=== PATIENT | male | born 1980 | race Hispanic/Latino ===

== ENCOUNTER 2017-07-25 05:41 | Inpatient (IN) | payer BC, OTHER ==
[2017-07-25] MEDS ORDERED: Sodium Chloride 0.9% 1,000 ML IV STA (06:14)
--- NOTE | 2017-07-25 06:15 | ED PDOC ---
Arrival/HPI - General Chief Complaint: Abdominal Pain Time Seen by Provider: 07/25/17 05:43 Historian: Patient - History of Present Illness Narrative History of Present Illness (Text): 07/25/17 06:12 Rob Reyna is a 37 year old male who presents to the Emergency department complaining of abdominal pain. Patient states he woke up yesterday with upper abdominal pain, which resolved on its own. Patient states abdominal pain pain returned today and notes he woke up today with severe RLQ pain, which has improved, but is still present. Patient denies any fever, chills, chest pain, shortness of breath, nausea, vomiting, diarrhea, urinary symptoms, back pain, neck pain, headache, dizziness, or any other complaints. Time/Duration: Other (yesterday) Symptom Onset: Gradual Symptom Course: Unchanged Activities at Onset: Light Context: Home Past Medical History - Provider Review Nursing Documentation Reviewed: Yes - Past Medical History Past Medical History: No Previous - Psychiatric Hx Depression: Yes Hx Emotional Abuse: No Hx Physical Abuse: No Hx Substance Use: No - Past Surgical History Past Surgical History: No Previous - Anesthesia Hx Anesthesia: No - Suicidal Assessment Feels Threatened In Home Enviroment: No Family/Social History - Physician Review Nursing Documentation Reviewed: Yes Family/Social History: Unknown Family HX Smoking Status: Never Smoked Hx Alcohol Use: Yes (beer) Frequency of alcohol use: Daily Hx Substance Use: No Hx Substance Use Treatment: No Allergies/Home Meds Allergies/Adverse Reactions: Allergies No Known Allergies Allergy (Verified 07/25/17 06:01) Home Medications: Home Meds Medication Instructions Recorded Confirmed Azilsartan Med/Chlorthalidone 1 tab PO DAILY 07/25/17 07/25/17 [Edarbyclor 40-25 mg Tablet] lamoTRIgine [Lamictal] 100 mg PO DAILY 07/25/17 07/25/17 Review of Systems - Physician Review All systems were reviewed & negative as marked: Yes - Review of Systems Constitutional: Normal. absent: Fevers Eyes: Normal ENT: Normal Respiratory: Normal. absent: SOB, Cough Cardiovascular: Normal. absent: Chest Pain Gastrointestinal: Abdominal Pain. absent: Diarrhea, Vomiting Genitourinary Male: Normal. absent: Dysuria, Frequency, Hematuria, Urinary Output Changes Musculoskeletal: Normal. absent: Back Pain, Neck Pain Skin: Normal. absent: Rash Neurological: Normal. absent: Headache, Dizziness Endocrine: Normal Hemo/Lymphatic: Normal Psychiatric: Normal Physical Exam Vital Signs Reviewed: Yes Vital Signs Temp Pulse Resp BP Pulse Ox 07/25/17 09:44 97.9 F 99 H 18 115/84 98 07/25/17 09:16 97.9 F 100 H 19 103/71 98 07/25/17 08:13 98.3 F 100 H 20 141/84 97 07/25/17 06:37 99 H 16 111/65 96 07/25/17 05:57 99.0 F 104 H 18 128/85 97 Temperature: Afebrile Blood Pressure: Normal Pulse: Regular Respiratory Rate: Normal Appearance: Positive for: Well-Appearing, Non-Toxic, Comfortable Pain Distress: None Mental Status: Positive for: Alert and Oriented X 3 - Systems Exam Head: Present: Atraumatic, Normocephalic Pupils: Present: PERRL Extroacular Muscles: Present: EOMI Conjunctiva: Present: Normal Mouth: Present: Moist Mucous Membranes Neck: Present: Normal Range of Motion Respiratory/Chest: Present: Clear to Auscultation, Good Air Exchange. No: Respiratory Distress, Accessory Muscle Use Cardiovascular: Present: Regular Rate and Rhythm, Normal S1, S2. No: Murmurs Abdomen: Present: Tenderness (RLQ tenderness). No: Distention, Peritoneal Signs Back: Present: Normal Inspection Upper Extremity: Present: Normal Inspection. No: Cyanosis, Edema Lower Extremity: Present: Normal Inspection. No: Edema Neurological: Present: GCS=15, CN II-XII Intact, Speech Normal Skin: Present: Warm, Dry, Normal Color. No: Rashes Psychiatric: Present: Alert, Oriented x 3, Normal Insight, Normal Concentration Medical Decision Making ED Course and Treatment: 07/25/17 06:12 Impression: 37 year old male complaining of abdominal pain since yesterday. Plan: -- CT Abdomen and Pelvis with IV contrast -- EKG -- Labs, amylase, lipase, cardiac enzymes -- Urinalysis -- IV fluids -- Reassess and disposition Progress Notes: 07/25/17 07:[address] Hawkins, pending CT scan, re-evaluation, and disposition. - Lab Interpretations Lab Results: 07/25/17 06:25 07/25/17 06:25 Lab Results 07/25/17 06:25: Sodium 137, Potassium 4.1, Chloride 95 L, Carbon Dioxide 25, Anion Gap 21 H, BUN 13, Creatinine 1.1, Est GFR ( Amer) > 60, Est GFR ( Non-Af Amer) > 60, Random Glucose 93, Calcium 9.4, Total Bilirubin 1.2, AST 80 H , ALT 87 H, Alkaline Phosphatase 49, Lactate Dehydrogenase 470, Total Creatine Kinase 357 H, CK-MB (CK-2) 2.6, CK-MB (CK-2) % Cancelled, Troponin I < 0.01, Total Protein 8.2, Albumin 4.7, Globulin 3.4, Albumin/Globulin Ratio 1.4, Amylase 95, Lipase 73 07/25/17 06:25: PT 12.2, INR 1.06, APTT 32.0 07/25/17 06:25: WBC 9.2, RBC 5.25, Hgb 15.5, Hct 45.1, MCV 85.9, MCH 29.5, MCHC 34.4, RDW 12.6, Plt Count 231, MPV 9.7, Gran % 67.0, Lymph % (Auto) 19.5 L, Forrest % (Auto) 10.5 H, Eos % (Auto) 2.8, Baso % (Auto) 0.2, Gran # 6.16, Lymph # (Auto) 1.8, Forrest # (Auto) 1.0 H, Eos # (Auto) 0.3, Baso # (Auto) 0.02 - RAD Interpretation Radiology Orders: 07/25/17 06:14 ABD & PELVIS IV CONTRAST ONLY [CT] Stat - Medication Orders Current Medication Orders: Discontinued Medications Hydromorphone HCl (Dilaudid) 0.5 mg IVP Q15M PRN PRN Reason: Pain, moderate (4-7) Stop: 07/25/17 18:15 Sodium Chloride (Sodium Chloride 0.9%) 1,000 mls @ 100 mls/hr IV .Q10H STA Stop: 07/25/17 16:13 Last Admin: 07/25/17 06:35 Dose: 100 mls/hr eMAR Start Stop Document 07/25/17 06:35 RG (Rec: 07/25/17 06:45 RG [id number]) Intravenous Solution Start Date 05/09/18 Start Time 06:35 Ciprofloxacin (Cipro 400mg/200ml Dsw) 400 mg in 200 mls @ 133.3 mls/hr IVPB STAT STA PRN Reason: Protocol Stop: 07/25/17 09:44 Last Admin: 07/25/17 11:11 Dose: 133.3 mls/hr Comments: NOT GIVEN IN ER. CONFIRMED BY TONY. eMAR Start Stop Document 07/25/17 11:11 EP (Rec: 07/25/17 11:11 EP [facility] [id number]) Intravenous Solution Start Date 07/25/17 Start Time 11:11 End Date 07/25/17 End time 12:41 Total Infusion Time 90 Metronidazole (Flagyl) 500 mg in 100 mls @ 100 mls/hr IVPB STAT STA PRN Reason: Protocol Stop: 07/25/17 09:13 Last Admin: 07/25/17 09:02 Dose: 100 mls/hr eMAR Start Stop Document 07/25/17 09:02 [email or web address] (Rec: 07/25/17 09:02 [email or web address] [id number]) Intravenous Solution Start Date 07/25/17 Start Time 09:02 Lactated Ringer's (Lactated Ringer's) 1,000 mls @ 125 mls/hr IV .Q8H DONTRELL Last Admin: 07/26/17 00:41 Dose: 125 mls/hr eMAR Start Stop Document 07/26/17 00:41 BR (Rec: 07/26/17 00:42 BR [id number]) Intravenous Solution Start Date 07/26/17 Start Time 00:42 Piperacillin Sod/Tazobactam Sod (Zosyn 3.375 In Ns 100ml) 100 mls @ 200 mls/hr IVPB Q6 DONTRELL PRN Reason: Protocol Stop: 07/25/17 18:29 Last Admin: 07/25/17 18:11 Dose: 200 mls/hr eMAR Start Stop Document 07/25/17 18:11 EP (Rec: 07/25/17 18:11 EP [facility] [id number]) Intravenous Solution Start Date 07/25/17 Start Time 18:11 End Date 07/25/17 End time 18:41 Total Infusion Time 30 Lorazepam (Ativan) 1 mg IVP Q4H PRN PRN Reason: Symptoms of alcohol withdrawl Morphine Sulfate (Morphine) 4 mg IVP Q4H PRN PRN Reason: Pain, moderate (4-7) Oxycodone/Acetaminophen (Percocet 5/325 Mg Tab) 1 tab PO Q4H PRN PRN Reason: Pain, moderate (4-7) Stop: 07/28/17 16:53 Last Admin: 07/25/17 22:48 Dose: 1 tab MAR Pain Assessment Document 07/25/17 22:48 BR (Rec: 07/25/17 22:48 BR [id number]) Pain Reassessment Is this a pain reassessment? No Sleep Is patient sleeping during reassessment? No Presence of Pain Presence of Pain Yes Pneumococcal Polyvalent Vaccine (Pneumovax 23 Vaccine) 0.5 ml IM .ONCE ONE Stop: 07/25/17 13:14 - Transfer of Care Patient signed out to Dr:: soledad ct and dispo - Scribe Statement The provider has reviewed the documentation as recorded by the Scribhan Justice Provider Scribe Attestation: All medical record entries made by the Scribe were at my direction and personally dictated by me. I have reviewed the chart and agree that the record accurately reflects my personal performance of the history, physical exam, medical decision making, and the department course for this patient. I have also personally directed, reviewed, and agree with the discharge instructions and disposition. Disposition/Present on Arrival - Present on Arrival Any Indicators Present on Arrival: No History of DVT/PE: No History of Uncontrolled Diabetes: No Urinary Catheter: No History of Decub. Ulcer: No History Surgical Site Infection Following: None - Disposition Have Diagnosis and Disposition been Completed?: Yes Diagnosis: Acute appendicitis Disposition: HOSPITALIZED Disposition Time: 07:00 Condition: FAIR
[2017-07-25 06:43] LABS: BASO # 0.02 K/mm3 (0.0-2.0); BASO % 0.2 % (0.0-3.0); EOS # 0.3 (0.0-0.7); EOS % 2.8 % (1.5-5.0); GRAN # 6.16 (1.4-6.5); HEMOGLOBIN 15.5 g/dL (14.0-18.0); LYMPH # 1.8 (1.2-3.4); LYMPH % 19.5 % (22.0-35.0); MEAN CELL VOLUME 85.9 fl (80.0-105.0); MEAN CORPUSCULAR HEMOGLOBIN 29.5 pg (25.0-35.0); MEAN CORPUSCULAR HGB CONC 34.4 g/dl (31.0-37.0); MEAN PLATELET VOLUME 9.7 fl (7.0-11.0); MONO % 10.5 % (1.0-6.0); RBC 5.25 10^6/uL (3.5-6.1); RED CELL DISTRIBUTION WIDTH 12.6 % (11.5-14.5); WHITE BLOOD COUNT 9.2 10^3/ul (4.5-11.0)
[2017-07-25 06:50] LABS: ALB/GLOB RATIO 1.4 (1.1-1.8); ALBUMIN 4.7 g/dL (3.0-4.8); ALT/SGPT 87 U/L (7-56); AMYLASE 95 U/L (35-125); AST/SGOT 80 U/L (17-59); BLOOD UREA NITROGEN 13 mg/dL (7-21); CALCIUM 9.4 mg/dL (8.4-10.5); GFR AFRICAN-AMERICAN > 60; GFR NON-AFRICAN AMERICAN > 60; LIPASE 73 U/L (23-300)
[2017-07-25 06:51] LABS: INR 1.06 (0.93-1.08); PROTHROMBIN TIME 12.2 SECONDS (9.4-12.5)
[2017-07-25 07:00] LABS: TROPONIN I < 0.01 ng/mL
[2017-07-25 07:17] LABS: CK-MB 2.6 ng/mL (0.0-3.6)
--- NOTE | 2017-07-25 08:00 | CT ---
EXAM: CT Abdomen and Pelvis With Intravenous Contrast CLINICAL HISTORY: 37 years old, male; Pain; Abdominal pain; Localized; Right lower quadrant (rlq); Additional info: Rlq pain TECHNIQUE: Axial computed tomography images of the abdomen and pelvis with intravenous contrast. All CT scans at this facility use one or more dose reduction techniques, viz.: automated exposure control; ma/kV adjustment per patient size (including targeted exams where dose is matched to indication; i.e. head); or iterative reconstruction technique. Coronal and sagittal reformatted images were created and reviewed. CONTRAST: 150 mL of OMNIPAQUE 350 administered intravenously. COMPARISON: No relevant prior studies available. FINDINGS: Lung bases: Unremarkable. No mass. No consolidation. ABDOMEN: Liver: Unremarkable. No mass. Gallbladder and bile ducts: Unremarkable. No calcified stones. No ductal dilation. Pancreas: Unremarkable. No mass. No ductal dilation. Spleen: Unremarkable. No splenomegaly. Adrenals: Unremarkable. No mass. Kidneys and ureters: Unremarkable. No solid mass. No hydronephrosis. Stomach and bowel: Unremarkable. No obstruction. No mucosal thickening. PELVIS: Appendix: The appendix demonstrates mild diffuse distention measuring 10 mm, consistent with mild or early acute appendicitis. There is mild inflammatory stranding. No perforation or abscess. Bladder: Unremarkable. No mass. Reproductive: Unremarkable as visualized. ABDOMEN and PELVIS: Intraperitoneal space: Unremarkable. No free air. No significant fluid collection. Bones/joints: No acute fracture. No dislocation. Soft tissues: Unremarkable. Vasculature: Unremarkable. No abdominal aortic aneurysm. Lymph nodes: Unremarkable. No enlarged lymph nodes. IMPRESSION: Findings consistent with acute appendicitis.
--- NOTE | 2017-07-25 08:09 | ED PDOC ---
Physical Exam Vital Signs Temp Pulse Resp BP Pulse Ox 07/25/17 08:13 98.3 F 100 H 20 141/84 97 07/25/17 06:37 99 H 16 111/65 96 07/25/17 05:57 99.0 F 104 H 18 128/85 97 Medical Decision Making ED Course and Treatment: 07/25/17 08:08 Case endorsed to me by Dr. Null at 07:00, pending CT results, re-evaluation and disposition. Report Date : 07/25/2017 07:59:00 EXAM: CT Abdomen and Pelvis With Intravenous Contrast Dictator : Annabella Cardona MD IMPRESSION: Findings consistent with acute appendicitis. Case discussed with Dr. Lenz, who accepts admission under his service. Request surgeon Dr. Irvin for consult. - Lab Interpretations Lab Results: 07/25/17 06:25 07/25/17 06:25 Lab Results 07/25/17 06:25: Sodium 137, Potassium 4.1, Chloride 95 L, Carbon Dioxide 25, Anion Gap 21 H, BUN 13, Creatinine 1.1, Est GFR ( Amer) > 60, Est GFR ( Non-Af Amer) > 60, Random Glucose 93, Calcium 9.4, Total Bilirubin 1.2, AST 80 H , ALT 87 H, Alkaline Phosphatase 49, Lactate Dehydrogenase 470, Total Creatine Kinase 357 H, CK-MB (CK-2) 2.6, CK-MB (CK-2) % Cancelled, Troponin I < 0.01, Total Protein 8.2, Albumin 4.7, Globulin 3.4, Albumin/Globulin Ratio 1.4, Amylase 95, Lipase 73 07/25/17 06:25: PT 12.2, INR 1.06, APTT 32.0 07/25/17 06:25: WBC 9.2, RBC 5.25, Hgb 15.5, Hct 45.1, MCV 85.9, MCH 29.5, MCHC 34.4, RDW 12.6, Plt Count 231, MPV 9.7, Gran % 67.0, Lymph % (Auto) 19.5 L, [place] % (Auto) 10.5 H, Eos % (Auto) 2.8, Baso % (Auto) 0.2, Gran # 6.16, Lymph # (Auto) 1.8, [place] # (Auto) 1.0 H, Eos # (Auto) 0.3, Baso # (Auto) 0.02 - RAD Interpretation Radiology Orders: 07/25/17 06:14 ABD & PELVIS IV CONTRAST ONLY [CT] Stat - Medication Orders Current Medication Orders: Sodium Chloride (Sodium Chloride 0.9%) 1,000 mls @ 100 mls/hr IV .Q10H STA Stop: 07/25/17 16:13 Last Admin: 07/25/17 06:35 Dose: 100 mls/hr eMAR Start Stop Document 07/25/17 06:35 RG (Rec: 07/25/17 06:45 RG [facility]-[id number]) Intravenous Solution Start Date 07/25/17 Start Time 06:35 Ciprofloxacin (Cipro 400mg/200ml Dsw) 400 mg in 200 mls @ 133.3 mls/hr IVPB STAT STA PRN Reason: Protocol Stop: 07/25/17 09:44 Metronidazole (Flagyl) 500 mg in 100 mls @ 100 mls/hr IVPB STAT STA PRN Reason: Protocol Stop: 07/25/17 09:13 - Scribe Statement The provider has reviewed the documentation as recorded by the Kyleibhan Guaman Provider Scribe Attestation: All medical record entries made by the Scribe were at my direction and personally dictated by me. I have reviewed the chart and agree that the record accurately reflects my personal performance of the history, physical exam, medical decision making, and the department course for this patient. I have also personally directed, reviewed, and agree with the discharge instructions and disposition. Disposition/Present on Arrival - Present on Arrival Any Indicators Present on Arrival: No History of DVT/PE: No History of Uncontrolled Diabetes: No Urinary Catheter: No History of Decub. Ulcer: No History Surgical Site Infection Following: None - Disposition Have Diagnosis and Disposition been Completed?: Yes Diagnosis: Acute appendicitis Disposition: HOSPITALIZED Disposition Time: 08:04 Patient Plan: Admission Condition: FAIR
[2017-07-25] MEDS ORDERED: Ciprofloxacin 400mg/200ml D5W 400 MG/200 ML BAG IVPB STA (08:14)
[2017-07-25] MEDS ORDERED: metroNIDAZOLE IV 500 mg/100 ml 500 MG/100 ML BAG IVPB STA (08:14)
--- NOTE | 2017-07-25 10:38 | CP.PCM.CON ---
History of Present Illness - History of Present Illness History of Present Illness: General surgery consult note for Dr. Irvin Consulted for: Acute appendicitis Patient is a 37M with PMH of bipolar disorder and ETOH abuse who presented to ER this AM with acute severe RLQ abdominal pain that started last ngiht. Pain was originally epigastric and migrated to the RLQ this AM. Denies nay nasuea, vomiting, diarrhea, fevers, chills, dysuria, hematuria, melena, or any other symptoms.this has never happened before. Last drink was last night PMH: bipolar disorder PSH: none ALL: none Social: denies tobacco, daily 6pack of beer, no marijuana or drugs Review of Systems - Review of Systems All systems: reviewed and no additional remarkable complaints except (as per HPI ) Past Patient History - Past Medical History & Family History Past Medical History?: Yes Past Family History: Reviewed and not pertinent - Past Social History Smoking Status: Never Smoked Alcohol: > 2 Drinks/Day (6pack beer/day) Drugs: Denies - PSYCHIATRIC Hx Depression: Yes Hx Emotional Abuse: No Hx Physical Abuse: No Hx Substance Use: No - SURGICAL HISTORY Hx Surgeries: No - ANESTHESIA Hx Anesthesia: No Meds Allergies/Adverse Reactions: Allergies Allergy/AdvReac Type Severity Reaction Status Date / Time No Known Allergies Allergy Verified 07/25/17 06:01 - Medications Medications: Current Medications Sodium Chloride (Sodium Chloride 0.9%) 1,000 mls @ 100 mls/hr IV .Q10H STA Stop: 07/25/17 16:13 Last Admin: 07/25/17 06:35 Dose: 100 mls/hr Lactated Ringer's (Lactated Ringer's) 1,000 mls @ 125 mls/hr IV .Q8H DONTRELL Piperacillin Sod/Tazobactam Sod (Zosyn 3.375 In Ns 100ml) 100 mls @ 200 mls/hr IVPB Q6 DONTRELL PRN Reason: Protocol Stop: 07/25/17 18:29 Lorazepam (Ativan) 1 mg IVP Q4H PRN PRN Reason: Symptoms of alcohol withdrawl Physical Exam - Constitutional Appears: Well, Non-toxic, No Acute Distress - Head Exam Head Exam: ATRAUMATIC, NORMOCEPHALIC - Eye Exam Eye Exam: Normal appearance. absent: Conjunctival injection, Scleral icterus - ENT Exam ENT Exam: Mucous Membranes Moist, Normal Oropharynx - Respiratory Exam Respiratory Exam: NORMAL BREATHING PATTERN. absent: Accessory Muscle Use, Respiratory Distress - Cardiovascular Exam Cardiovascular Exam: Tachycardia - GI/Abdominal Exam GI & Abdominal Exam: Soft, Tenderness (RLQ>LLQ, ). absent: Distended Additional comments: negative psoas sign - Extremities Exam Extremities exam: Positive for: pedal pulses present. Negative for: calf tenderness, pedal edema - Neurological Exam Neurological exam: Alert, Oriented x3 - Psychiatric Exam Psychiatric exam: Normal Affect, Normal Mood - Skin Skin Exam: Dry, Intact, Normal Color, Warm Results - Vital Signs Recent Vital Signs: Last Vital Signs Temp 97.9 F 07/25/17 09:44 Pulse 99 H 07/25/17 09:44 Resp 18 07/25/17 09:44 BP 115/84 07/25/17 09:44 Pulse Ox 98 07/25/17 09:44 - Labs Result Diagrams: 07/25/17 06:25 07/25/17 06:25 - Imaging and Cardiology CT scan - abdomen Status: Image reviewed by me, Report reviewed by me Assessment & Plan - Assessment and Plan (Free Text) Assessment: 37M with acute appendicitis Plan: OR today for appendectomy NPO IVF zosyn PRN pain and nausea medication SCD/incentive spirometer CIWA protocol Discussed with Dr. Albaro Yanez, PGY2
[2017-07-25] MEDS: Lactated Ringer's 1,000 ML IV SCH ×2 (10:50→18:41)
[2017-07-25] MEDS: Piperacillin/Tazobact 3.375 gm 100 ML IVPB SCH ×2 (12:14→18:11)
[2017-07-25] MEDS ORDERED: Morphine 4 mg/ml ISec IVP PRN ×2 (13:04→16:51)
[2017-07-25 13:13] VITALS: BMI 32.7
[2017-07-25] MEDS ORDERED: Pneumococcal 23-Valent Vaccine IM ONE (13:13)
[2017-07-25] MEDS ORDERED: Propofol 10 mg/ml Inj (20 ML) ONE (13:56)
[2017-07-25] MEDS ORDERED: Midazolam 2 MG/2 ML VIAL ONE (13:57)
[2017-07-25] MEDS ORDERED: Lidocaine 2% Inj (20ml) ONE (13:57)
[2017-07-25] MEDS ORDERED: Rocuronium 10 mg/ml (5 ml) ONE ×2 (13:57→15:06)
[2017-07-25] MEDS ORDERED: Succinylcholine 200 mg/10 ml Inj IV ONE (13:57)
--- NOTE | 2017-07-25 14:12 | CARD ---
APPROVED REPORT EKG Measurement Heart [id number] <Conclusion> Sinus tachycardia Otherwise normal ECG
[2017-07-25] MEDS: Bupivacaine 0.5% Inj(30mL) ONE ×2 (14:30→15:50)
--- NOTE | 2017-07-25 14:51 | HP ---
HISTORY OF PRESENT ILLNESS: The patient is a 37 year old man with a past medical history of bipolar disorder and alcohol dependence who presented to [facility] ED for evaluation of a 2 day history of progressively worsening abdominal discomfort. The patient reports that initially he was experiencing a right upper quadrant abdominal pain which resolved spontaneously however 12 hours later he developed a severe right lower quadrant pain associated with nausea but no episodes of vomiting. After several hours the pain had not resolved spontaneously so he opted for ED evaluation. Upon arrival to the ED he was found to be afebrile and hemodynamically stable. Physical examination disclosed right lower quadrant tenderness with guarding. He underwent a CT of the abdomen and pelvis which demonstrated findings consistent with an acute appendicitis. He was subsequently admitted for surgical management of an acute appendicitis. PAST MEDICAL HISTORY: As per HPI. PAST SURGICAL HISTORY: None. ALLERGIES: NKDA. MEDICATIONS: Lamictal 100 mg p.o. daily. FAMILY HISTORY: Noncontributory. SOCIAL HISTORY: The patient reports daily alcohol use consisting of 6 beers per day. He denies tobacco use or illicit drug abuse. REVIEW OF SYSTEMS: Positive for right lower quadrant abdominal pain with nausea. Negative for vomiting, diarrhea, fevers, chills, rigors, chest pain, palpitations or diaphoresis. PHYSICAL EXAMINATION: VITAL SIGNS: Temperature 97.9, pulse 99, blood pressure 115/84, respiratory rate 18, oxygen saturation 98% on room air. GENERAL: Mild distress secondary to abdominal pain. HEENT: PERRL, EOMI. No scleral icterus. No conjunctival pallor. NECK: No JVD. No bruits. LUNGS: Clear to auscultation. CARDIOVASCULAR: Tachycardic. Normal S1 and S2. No murmurs. ABDOMEN: Normoactive bowel sounds, soft, tender to palpation to RLQ with voluntary guarding and positive McBurney rebound. EXTREMITIES: No edema. NEUROLOGIC: Awake, alert and oriented x 3. No focal motor deficits. No asterixis. LABORATORY DATA: CBC reviewed and unremarkable. BMP reviewed and unremarkable. AST 80, ALT 87. IMAGING STUDIES: CT of the abdomen and pelvis with IV contrast demonstrates findings consistent with acute appendicitis. ASSESSMENT: The patient is a 37 year old man with a past medical history of bipolar disorder and alcohol dependence who presented for evaluation of severe right lower quadrant abdominal pain and was admitted for management of acute appendicitis. PLAN: 1. Acute appendicitis. Dr. Irvin of General Surgery has been consulted for further evaluation. He has been started on antimicrobials by the surgical team. He remains n.p.o. in anticipation of appendectomy. Continue with IV fluid hydration. The patient is a low risk patient for an intermediate risk procedure and may proceed to the OR without any further cardiac workup. 2. Alcohol dependence. The patient reports daily 6 cans of beer alcohol consumption with his last drink 1 day ago. He has been started on Ativan so as to mitigate withdrawal symptoms. Continue with frequent neuro checks and close monitoring for DTs. Continue with IV fluid hydration. 3. Bipolar disorder. We will resume the patient's Lamictal. CODE STATUS: Full code. Rehan Lenz MD MTDPaulino
[2017-07-25] MEDS ORDERED: Glycopyrrolate 0.2 mg/ml (2ml vial) ONE (15:33)
[2017-07-25] MEDS ORDERED: HYDROmorphone 0.5 mg/0.5 ml ISec IVP PRN (16:13)
--- NOTE | 2017-07-25 16:16 | PCM.SURG1 ---
Surgeon's Initial Post Op Note - Surgeon's Notes Surgeon: Dr. Irvin Climatology Teacher: Dr. Aly PGY-3, Dr. Yanez PGY-2 Type of Anesthesia: General Endo Anesthesia Administered By: Dr. Ruelas Pre-Operative Diagnosis: Acute Appendicitis Operative Findings: See operative report Post-Operative Diagnosis: Same Operation Performed: Laparoscopic Appendectomy Specimen/Specimens Removed: Appendix Estimated Blood Loss: EBL {In ML}: 10 Blood Products Given: N/A Drains Used: No Drains Post-Op Condition: Good Date of Surgery/Procedure: 07/25/17 Time of Surgery/Procedure: 16:16
[2017-07-25] MEDS ORDERED: Oxycodone/Acetaminophen 5/325 mg Tab PO PRN (16:52)
[2017-07-25 17:00] VITALS: RESP 20
[2017-07-26] MEDS: Lactated Ringer's 1,000 ML IV SCH (00:41)
[2017-07-26 07:02] LABS: BASO # 0.02 K/mm3 (0.0-2.0); BASO % 0.2 % (0.0-3.0); EOS # 0.2 (0.0-0.7); GRAN # 5.37 (1.4-6.5); GRAN % 66.4 % (50.0-68.0); LYMPH # 1.8 (1.2-3.4); LYMPH % 21.6 % (22.0-35.0); MEAN CELL VOLUME 87.7 fl (80.0-105.0); MEAN CORPUSCULAR HEMOGLOBIN 29.7 pg (25.0-35.0); MEAN CORPUSCULAR HGB CONC 33.9 g/dl (31.0-37.0); MEAN PLATELET VOLUME 9.6 fl (7.0-11.0); MONO # 0.8 (0.1-0.6); MONO % 9.8 % (1.0-6.0); RBC 4.71 10^6/uL (3.5-6.1); RED CELL DISTRIBUTION WIDTH 12.7 % (11.5-14.5); WHITE BLOOD COUNT 8.1 10^3/ul (4.5-11.0)
[2017-07-26 07:18] LABS: ALB/GLOB RATIO 1.3 (1.1-1.8); ALBUMIN 3.9 g/dL (3.0-4.8); ALT/SGPT 62 U/L (7-56); AST/SGOT 57 U/L (17-59); BLOOD UREA NITROGEN 14 mg/dL (7-21); GFR AFRICAN-AMERICAN > 60; GFR NON-AFRICAN AMERICAN > 60
[2017-07-26 07:29] VITALS: BP 125/73; PULSE 90; TEMP 98; O2SAT 98
--- NOTE | 2017-07-26 09:25 | CP.PCM.PN ---
Subjective - Date & Time of Evaluation Date of Evaluation: 07/26/17 Time of Evaluation: 07:00 - Subjective Subjective: Pt seen and examined at bedside this AM. patient denies any pain, nasuea, vomiting, or fevers. Patient tolerated regular diet without complication Objective - Vital Signs/Intake and Output Vital Signs (last 24 hours): Temp Pulse Resp BP Pulse Ox 98 F 90 20 125/73 98 07/26/17 06:00 07/26/17 06:00 07/26/17 06:00 07/26/17 06:00 07/26/17 06:00 Intake and Output: 07/26/17 07/26/17 06:59 18:59 Intake Total 840 Balance 840 - Medications Medications: Current Medications Lorazepam (Ativan) 1 mg IVP Q4H PRN PRN Reason: Symptoms of alcohol withdrawl Oxycodone/Acetaminophen (Percocet 5/325 Mg Tab) 1 tab PO Q4H PRN PRN Reason: Pain, moderate (4-7) Stop: 07/28/17 16:53 Last Admin: 07/25/17 22:48 Dose: 1 tab - Labs Labs: 07/26/17 06:15 07/26/17 06:15 PT 12.2 SECONDS (9.4-12.5) 07/25/17 06:25 INR 1.06 (0.93-1.08) 07/25/17 06:25 APTT 32.0 Seconds (25.1-36.5) 07/25/17 06:25 - Constitutional Appears: Well, Non-toxic, No Acute Distress - Head Exam Head Exam: ATRAUMATIC, NORMOCEPHALIC - Eye Exam Eye Exam: Normal appearance. absent: Conjunctival injection, Scleral icterus - ENT Exam ENT Exam: Mucous Membranes Moist, Normal Oropharynx - Respiratory Exam Respiratory Exam: NORMAL BREATHING PATTERN. absent: Accessory Muscle Use, Respiratory Distress - GI/Abdominal Exam GI & Abdominal Exam: Soft, Tenderness (RLQ, cristina-incisional). absent: Distended Additional comments: surgical incisions c/d/i, no surrounding erythema or drainage - Extremities Exam Extremities Exam: absent: Calf Tenderness, Pedal Edema, Tenderness - Neurological Exam Neurological Exam: Alert, Awake, Oriented x3 - Psychiatric Exam Psychiatric exam: Normal Affect, Normal Mood - Skin Skin Exam: Dry, Intact, Normal Color, Warm Assessment and Plan - Assessment and Plan (Free Text) Assessment: 37M POD#1 s/p laparoscopic appendectomy Plan: Patient is clear for discharge from a surgical standpoint with follow up with Dr. Irvin in his office in 1-2 weeks Patient should avoid lifting more than 15 pounds and any constipation PT may take NSAIDs at home for pain Recommend decreased ETOH intake at home Discussed with Dr. Albaro Yanez, Pgy2
--- NOTE | 2017-07-26 12:52 | PN ---
DATE: 07/26/2017 SUBJECTIVE: A 37-year-old white male with history of bipolar disorder, admitted to the hospital with right lower quadrant pain, was taken to Surgery by Dr. Irvin, was found to have acute appendicitis. Patient underwent a laparoscopic appendectomy. Patient is doing well, postop day 1. PHYSICAL EXAMINATION: GENERAL: He is afebrile. Vital signs are stable. He is ambulating. He is passing his urine. ABDOMEN: He has had flatus, but no bowel movement. His abdomen is soft. EXTREMITIES: No cyanosis, clubbing, or edema. CHEST: Clear to auscultation and percussion. HEART: Regular sinus rhythm. Patient most likely will be discharged home today, to be followed as an outpatient. Min Chatterjee MD
--- NOTE | 2017-07-26 20:49 | OP ---
PROCEDURE DATE: 07/25/2017 SURGEON: Lonnie Irvin MD ASSISTANTS: 1. Magaly Aly MD 2. Nancy Yanez DO. PREOPERATIVE DIAGNOSIS: Acute appendicitis. POSTOPERATIVE DIAGNOSIS: Acute appendicitis. PROCEDURE: Appendectomy done laparoscopically. COMPLICATIONS: None. ESTIMATED BLOOD LOSS: Minimal. DESCRIPTION OF PROCEDURE: In the operating room, after the successful timeout, having prepped the abdomen with chlorhexidine, waiting 3 minutes, the timeout was completed, noting her consent, her wristband and number, day, and my signature and consent, the abdomen having been prepped and then draped. An infraumbilical incision was made through the skin and subcutaneous tissues and a Veress needle was inserted; however, initially the pressure was inconsistent, with good placement. The Veress needle was inserted through the umbilicus and the pressures were normalized. A 2.5 liters were insufflated to a pressure of about 10. The Visiport was then placed in the abdomen and without issue. This is followed by supraumbilical 5 mm and left lower quadrant 5 mm. CAT scan showed long appendix with appendiceal tip inflammation. The cecum was identified, it was rolled towards the midline. The base of the appendix was readily identified. Using traction and countertraction and some blunt dissection, following the appendix distally, the appendix was seen, the tip was seen to be inflamed, it was bluntly from the peritissues and the tip of the appendix was easily grabbed, pulling this up, the appendix was readily dissected away from the mesentery and using the harmonic scalpel, the mesentery was serially taken on low and this gave much more mobility, by blunt dissection we were able to get proximally to the cecum clearly identify the cecum. Pulling it up Endo YUMIKO, removed, placed in a bag. There was considerable amount of irrigation done to remove some minor bleeding from the tissue around the cecum but there was no bleeding eventually. Full circumspection around the abdomen was unremarkable including the sigmoid, that was pushed a little bit, but not damaged. The abdomen was empted with CO2 after looking one more time, the anastomosis was beautiful. The incision was closed with #1 Vicryl on needle and closed with Vicryl, subcuticular PDS. The wounds were injected with Marcaine about 30 mL of 0.5%. The patient was taken to the recovery room in good condition thereafter. Lonnie Irvin MD
--- NOTE | 2017-07-27 21:25 | DS ---
HISTORY OF PRESENT ILLNESS: Rob is a 37-year-old white male, admitted to the hospital with acute appendicitis, taken to Surgery by Dr. Irvin. The patient was discharged to home on 07/26/2017. The patient will be followed as an outpatient. The patient also has history of bipolar disorder. Lamictal and blood pressure medications, losartan, and . The patient will be followed as an outpatient. FINAL DISCHARGE DIAGNOSES: Acute appendicitis, history of bipolar disorder, and hypertension. Min Chatterjee MD
== END 2017-07-26 11:05 | disposition home or self-care (01) | DRG 343 ==
LOC: ED 05:41 → ERH 08:27 → 5RNO 09:55
PROVIDERS: ADMIT Student in an Organized Health Care Education/Training Program; ATTEND Internal Medicine
PROC: 0DTJ4ZZ Resection of Appendix, Percutaneous Endoscopic Approach (ICD-10-PCS; principal; 2017-07-26)
DX: K35.80 Unspecified acute appendicitis (principal); I10 Essential (primary) hypertension; F31.9 Bipolar disorder, unspecified; F10.20 Alcohol dependence, uncomplicated